=== PATIENT | female | born 1945 | race African-American/Black ===

== ENCOUNTER 2021-12-30 10:34 | Emergency (ER) | payer MEDICARE, MEDICAID ==
[~2021-12-30] VITALS: Ht 152.4 cm; Wt 118.2 kg
[~2021-12-30 10:34] MED LIST: AMLO-258 PO; ASPI-1450 PO; DOCU-385 PO; GLIM4 PO; OMEP20 PO; SIMV-259 PO
[2021-12-30 10:44] VITALS: BP 132/69
== END 2021-12-30 14:13 | disposition home or self-care (01) ==
LOC: EMS 10:38
DX: M25.511 Pain in right shoulder (principal); I10 Essential (primary) hypertension; E11.9 Type 2 diabetes mellitus without complications; R51.9 Headache, unspecified; Z79.82 Long term (current) use of aspirin; Z79.899 Other long term (current) drug therapy; W18.39XA Other fall on same level, initial encounter; Y93.89 Activity, other specified; Y92.89 Other specified places as the place of occurrence of the external cause; Y99.8 Other external cause status
CPT/HCPCS: 70450; 82962; 99284